=== PATIENT | female | born 1945 | race Two or more races ===

== ENCOUNTER 2019-04-04 05:00 | Day surgery (SDC) | payer OTHER ==
[~2019-04-04 05:00] MED LIST: AMLODIPINE PO; ASPIR 8181 MG PO; COZAAR100 MG PO; OSTERA TABLET1 EACH PO; VIT B PO
== END 2019-04-04 10:00 | disposition home or self-care (01) ==
LOC: CIR.AMB 05:00
DX: L72.0 Epidermal cyst (principal)